=== PATIENT | male | born 1985 | race Caucasian/White ===

== ENCOUNTER 2022-04-10 14:30 | Emergency (ER) | payer OTHER ==
[2022-04-10] MEDS ORDERED: Boostrix 0.5 ML (Tdap) VIAL (>/=7 yrs of age) ONE (14:49)
[2022-04-10] MEDS ORDERED: Lidocaine 1% PF 5 ML VIAL ONE (14:49)
[2022-04-10] MEDS ORDERED: Bacitracin 1 PK ONE (14:49)
== END 2022-04-10 15:46 | disposition home or self-care (01) ==
LOC: BURERS 14:30
DX: S61.213A Laceration without foreign body of left middle finger without damage to nail, initial encounter (principal); W31.89XA Contact with other specified machinery, initial encounter
CPT/HCPCS: 12001; 90471; 90715